=== PATIENT | female | born 1995 | race Caucasian/White ===

== ENCOUNTER 2019-04-01 09:15 | Emergency (ER) | payer MEDICAID ==
[~2019-04-01] VITALS: Ht 175.3 cm; Wt 110.4 kg
[2019-04-01 09:22] VITALS: BP 130/86
[2019-04-01] MEDS ORDERED: ONDANSETRON 4 MG ODT PO ONE (09:40)
--- NOTE | 2019-04-01 09:43 | NUR ---
PT BIB SELF WITH C/O COUGH, RUNNY NOSE & SORE THROAT X 1 WEEK AND C/O N/V X 3 DAYS. 22 WEEK, LMP 10/13/18. , EXPECTED 07/29/2019. PT STATED VOMITTED BLOOD LAST NIGHT & 2 EPISODES X TODAY. DENIES DIARRHEA OR ABDOMINAL PAIN. NO FEVER OR CHILLS . DENIES ANY PAIN AT THIS TIME. NO MEDS TAKEN AT HOME. PT SEEN BY ER MD. WILL CONTINUR TO MONITOR PT. HX:DENIES. MED : [facility]
--- NOTE | 2019-04-01 11:10 | NUR ---
CHECKED ON PT , LYING COMFORTABLY IN HER BED. SLIGHT NAUSEATED, NO VOMITING AFTER DRINKING WATER. WILL CONTINUE TO MONITOR PT.
[2019-04-01 11:43] LABS: APPEARANCE,URINE HAZY (CLEAR); BILIRUBIN,URINE NEGATIVE (NEGATIVE); BLOOD, URINE NEGATIVE (NEGATIVE); COLOR,URINE YELLOW (YELLOW); LEUKOCYTE ESTERASE ,URINE 3+ (NEGATIVE); NITRITE, URINE NEGATIVE (NEGATIVE); UGLUCOSE NEGATIVE (NEGATIVE)
[2019-04-01 12:02] LABS: RBC,URINE 0-5 /HPF (0-5)
--- NOTE | 2019-04-01 12:50 | NUR ---
AWAITING DISCHARGE INFO BY ER MD DR LANGLEY
[2019-04-01 13:13] VITALS: BP 113/62
--- NOTE | 2019-04-01 13:13 | NUR ---
Patient discharged with v/s stable. Written and verbal after care instructions given and explained. Patient alert, oriented and verbalized understanding of instructions. Ambulatory with steady gait. All questions addressed prior to discharge. ID band removed. Patient advised to follow up with PMD. Rx of KEELIZABETHES 500 M CAP, ZOFRAN 4 MG ODT given. Patient educated on indication of medication including possible reaction and side effects. Opportunity to ask questions provided and answered.
== END 2019-04-01 13:13 | disposition home or self-care (01) ==
LOC: MED 09:15
DX: O23.41 Unspecified infection of urinary tract in pregnancy, first trimester (principal); O99.611 Diseases of the digestive system complicating pregnancy, first trimester; K21.9 Gastro-esophageal reflux disease without esophagitis; Z3A.12 12 weeks gestation of pregnancy
CPT/HCPCS: 81001; 87086; 99283; Q0162